=== PATIENT | female | born 1990 | race American Indian/Alaskan Native ===

== ENCOUNTER 2019-06-08 22:13 | Emergency (ER) | payer MEDICAID ==
[2019-06-08 23:20] LABS: Basophils % (Auto) 0.3 % (0.0-1.8); Eosinophils # (Auto) 0.1 K/mm3 (0.0-0.4); Eosinophils % (Auto) 1.1 % (0.0-4.3); Hematocrit 36.3 % (30.3-42.9); Hemoglobin 11.9 gm/dl (10.1-14.3); Lymphocytes # (Auto) 0.7 K/mm3 (1.2-5.4); Lymphocytes % (Auto) 10.6 % (13.4-35.0); Mean Corpuscular HGB Conc 33 % (30-34); Mean Corpuscular Volume 81 fl (79-97); Monocytes # (Auto) 0.8 K/mm3 (0.0-0.8); Platelet Count 292 K/mm3 (140-440); Red Blood Count 4.47 M/mm3 (3.65-5.03); Red Cell Distribution Width 16.5 % (13.2-15.2)
[2019-06-08 23:38] LABS: Alanine Aminotransferase 18 units/L (7-56); Albumin 4.1 g/dL (3.9-5); BUN/Creatinine Ratio 22; Blood Urea Nitrogen 13 mg/dL (7-17); Calcium 8.7 mg/dL (8.4-10.2); Hemolysis Index 6
[2019-06-09] MEDS ORDERED: BENTYL PO ONE (00:34)
[2019-06-09] MEDS ORDERED: LIDOCAINE VISCOUS 2% PO ONE (00:34)
[2019-06-09] MEDS ORDERED: PEPCID PO ONE (00:34)
[2019-06-09] MEDS ORDERED: NACL 0.9% 1000 ML 1,000 ML IV ONE (00:34)
[2019-06-09] MEDS ORDERED: ALUM-MAG HYDROX-SIMETH 200-200-20MG/5ML PO ONE (00:34)
[2019-06-09 00:41] LABS: Bilirubin,Urine NEG (Negative); Color,Urine Yellow (Yellow)
[2019-06-09 00:42] LABS: Blood,Urine NEG (Negative); Mucus,Urine 3+ /HPF
--- NOTE | 2019-06-09 00:50 | Emergency Department Report ---
ED Abdominal Pain HPI - General Chief Complaint: Abdominal Pain Stated Complaint: ABD PAIN/NAUSEA/BACK PAIN/CRAMPING Source: patient Mode of arrival: Ambulatory Limitations: No Limitations - History of Present Illness Initial Comments: Patient is a A0 28-year-old -[place] female with no past medical history who presents to the ED with complaint of acute onset persistent epigastric pain that radiates to the left upper quadrant area with nausea for the last 18 hours. Patient states that the last meal she ate was from a restaurant 12 hours prior to the onset of the symptoms. Patient states that her pain woke up from sleep and has been persistent since onset. Patient states the pain is constant and worse with any food intake. Patient denies vomiting, fever, chills, cough, diarrhea, chest pain, shortness of breath, dizziness, headache, dysuria, urinary frequency and urgency, vaginal bleeding, hematemesis, hematochezia or headache. MD Complaint: abdominal pain -: Sudden, hour(s) (18) Location: LUQ, epigastric Radiation: LUQ, epigastric Migration to: no migration Severity: severe Severity scale (0 -10): 8 Quality: cramping, aching, sharp Consistency: constant Improves With: nothing Worsens With: eating Associated Symptoms: denies other symptoms, nausea. denies: vomiting, diarrhea, fever, chills, constipation, dysuria, hematemesis, hematochezia, melena, hematuria - Related Data LMP Date: 05/23/19 Previous Rx's Medication Instructions Recorded Last Taken Type Dicyclomine [Bentyl] 20 mg PO Q6H PRN #24 tablet 06/09/19 Unknown Rx Ondansetron [Zofran Odt] 4 mg PO Q6HR PRN #15 tab.rapdis 06/09/19 Unknown Rx cephALEXin [Keflex] 500 mg PO Q8HR #30 cap 06/09/19 Unknown Rx raNITIdine HCl [Zantac] 150 mg PO DAILY #30 tablet 06/09/19 Unknown Rx Allergies Allergy/AdvReac Type Severity Reaction Status Date / Time No Known Allergies Allergy Unverified 06/08/19 22:50 ED Review of Systems ROS: Stated complaint: ABD PAIN/NAUSEA/BACK PAIN/CRAMPING Other details as noted in HPI Constitutional: denies: chills, fever Eyes: denies: eye pain, eye discharge, vision change ENT: denies: ear pain, throat pain Respiratory: denies: cough, shortness of breath, wheezing Cardiovascular: denies: chest pain, palpitations Endocrine: no symptoms reported Gastrointestinal: abdominal pain, nausea. denies: vomiting, diarrhea Genitourinary: denies: urgency, dysuria, discharge Musculoskeletal: denies: back pain, joint swelling, arthralgia Skin: denies: rash, lesions Neurological: denies: headache, weakness, paresthesias Psychiatric: denies: anxiety, depression Hematological/Lymphatic: denies: easy bleeding, easy bruising ED Past Medical Hx - Past Medical History Previous Medical History?: No - Surgical History Past Surgical History?: No - Social History Smoking Status: Never Smoker Substance Use Type: None - Medications Home Medications: Home Medications Medication Instructions Recorded Confirmed Last Taken Type Dicyclomine [Bentyl] 20 mg PO Q6H PRN #24 tablet 06/09/19 Unknown Rx Ondansetron [Zofran Odt] 4 mg PO Q6HR PRN #15 tab.rapdis 06/09/19 Unknown Rx cephALEXin [Keflex] 500 mg PO Q8HR #30 cap 06/09/19 Unknown Rx raNITIdine HCl [Zantac] 150 mg PO DAILY #30 tablet 06/09/19 Unknown Rx ED Physical Exam - General Limitations: No Limitations General appearance: alert, in no apparent distress - Head Head exam: Present: atraumatic, normocephalic, normal inspection - Eye Eye exam: Present: normal appearance, PERRL, EOMI Pupils: Present: normal accommodation - ENT ENT exam: Present: normal exam, normal orophraynx, mucous membranes moist, TM's normal bilaterally, normal external ear exam - Neck Neck exam: Present: normal inspection, full ROM - Respiratory Respiratory exam: Present: normal lung sounds bilaterally. Absent: respiratory distress, wheezes, rales, stridor, chest wall tenderness, decreased breath sounds - Cardiovascular Cardiovascular Exam: Present: regular rate, normal rhythm, normal heart sounds. Absent: systolic murmur, diastolic murmur, rubs, gallop - GI/Abdominal GI/Abdominal exam: Present: soft, tenderness (epigastric tenderness, no guarding or rebound), normal bowel sounds. Absent: guarding, rebound, hyperactive bowel sounds - Extremities Exam Extremities exam: Present: normal inspection, full ROM, normal capillary refill - Back Exam Back exam: Present: normal inspection, full ROM. Absent: CVA tenderness (L), muscle spasm, vertebral tenderness - Neurological Exam Neurological exam: Present: alert, oriented X3, CN II-XII intact, normal gait, reflexes normal - Psychiatric Psychiatric exam: Present: normal affect, normal mood - Skin Skin exam: Present: warm, dry, intact, normal color. Absent: rash ED Course Vital Signs 06/08/19 06/09/19 22:21 00:05 Temperature 98.1 F 97.9 F Pulse Rate 86 76 Respiratory 18 15 Rate Blood Pressure 116/75 Blood Pressure 123/72 [Left] O2 Sat by Pulse 99 100 Oximetry - Reevaluation(s) Reevaluation #1: 06/09/19 00:49 This is a 28-year-old female who presented to the ED with epigastric and left upper quadrant pain with nausea for over 12 hours. In the ED, patient is alert and oriented 3 and is not in distress, with normal vital signs. Lab test results were reviewed and are all nonactionable except urinalysis that shows significant urinary tract infection. Patient was treated for pain and also for nausea with antiemetics and antacids. Gallbladder ultrasound was also performed and was unremarkable. Patient also received Rocephin 1 g IV for UTI. On reevaluation, patient's pain was well controlled with medications. Patient symptoms likely due to GERD complications and UTI. Patient was discharged home on medications and advised to follow up with [facility] in 7-10 days for reevaluation. Patient was advised to return to the ED immediately if symptoms get worse. 06/09/19 01:56 ED Medical Decision Making - Lab Data Result diagrams: 06/08/19 22:56 06/08/19 22:56 - Radiology Data Radiology results: report reviewed, image reviewed Gallbladder ultrasound is unremarkable with no gallstones. - Medical Decision Making This is a 28-year-old female who presented to the ED with epigastric and left upper quadrant pain with nausea for over 12 hours. In the ED, patient is alert and oriented 3 and is not in distress, with normal vital signs. Lab test results were reviewed and are all nonactionable except urinalysis that shows significant urinary tract infection. Patient was treated for pain and also for nausea with antiemetics and antacids. Gallbladder ultrasound was also performed and was unremarkable. Patient also received Rocephin 1 g IV for UTI. On reevaluation, patient's pain was well controlled with medications. Patient symptoms likely due to GERD complications and UTI. Patient was discharged home on medications and advised to follow up with [facility] in 7-10 days for reevaluation. Patient was advised to return to the ED immediately if symptoms get worse. 06/09/19 01:56 - Differential Diagnosis GERD; Acute gastritis; Gallstones; Esophagitis; acute UTI Critical care attestation.: If time is entered above; I have spent that time in minutes in the direct care of this critically ill patient, excluding procedure time. ED Disposition Clinical Impression: Abdominal pain, acute, epigastric, Acute urinary tract infection GERD (gastroesophageal reflux disease) Qualifiers: Esophagitis presence: without esophagitis Qualified Code(s): K21.9 - Gastro- esophageal reflux disease without esophagitis Disposition: TO HOME OR SELFCARE Is pt being admited?: No Does the pt Need Aspirin: No Condition: Stable Instructions: Gastroesophageal Reflux Disease (ED), Abdominal Pain (ED) Additional Instructions: Take medication with food, drink plenty of fluids and follow-up with your primary care physician in 7-10 days for reevaluation. Return to the ED immediately if symptoms get worse. Prescriptions: Dicyclomine [Bentyl] 20 mg PO Q6H PRN #24 tablet PRN Reason: Pain , Severe (7-10) cephALEXin [Keflex] 500 mg PO Q8HR #30 cap raNITIdine HCl [Zantac] 150 mg PO DAILY #30 tablet Ondansetron [Zofran Odt] 4 mg PO Q6HR PRN #15 tab.rapdis PRN Reason: Nausea Referrals: [facility] [Outside] - 7-10 days Time of Disposition: 00:52 Print Language: IRISH
--- NOTE | 2019-06-09 01:30 | Ultrasound Report ---
LIMITED RUQ ABDOMINAL ULTRASOUND INDICATION: Epigastric pain. COMPARISON: No relevant prior imaging study available. FINDINGS: Pancreas: Visualized portions show no significant abnormality. Abdominal Aorta: No significant abnormality. IVC: No significant abnormality. Liver: Normal. Gallbladder: Normal. Sonographic Lane's sign: Not performed. Bile ducts: Normal. Common bile duct measures 4 mm. Free fluid: None. Additional Findings: None. IMPRESSION: 1. Normal exam. Signer Name: Collin Phillips MD Signed: 06/09/2019 1:26 AM Workstation Name: [id number]
[2019-06-09] MEDS ORDERED: ROCEPHIN/NS 1 GM/50 ML 1 GM/50 ML BAG IV ONE (01:51)
[2019-06-09 02:44] VITALS: BP 111/64
== END 2019-06-09 02:37 | disposition home or self-care (01) ==
LOC: ED 22:13
DX: N39.0 Urinary tract infection, site not specified (principal); K21.9 Gastro-esophageal reflux disease without esophagitis
CPT/HCPCS: 36415; 76705; 80053; 81001; 83690; 84703; 85025; 87086; 96365; 99284; J0696; J7030